=== PATIENT | male | born 1955 | race Caucasian/White ===

== ENCOUNTER 2018-02-06 19:15 | Emergency (ER) | payer SELFPAY ==
[~2018-02-06] VITALS: Ht 182.9 cm; Wt 81.0 kg
[2018-02-06 21:57] VITALS: BP 107/64
== END 2018-02-06 21:59 | disposition home or self-care (01) ==
LOC: ED 20:10
DX: F10.129 Alcohol abuse with intoxication, unspecified (principal); Z72.9 Problem related to lifestyle, unspecified
CPT/HCPCS: 99283